=== PATIENT | male | born 1990 | race African-American/Black ===

== ENCOUNTER 2017-04-02 02:23 | Emergency (ER) | payer OTHER, SELFPAY ==
[2017-04-02] MEDS ORDERED: Adacel (T-DAP) 0.5 ML VIAL ONE (03:02)
[2017-04-02] MEDS ORDERED: Bacitracin Zinc 1 Packet ONE (03:14)
== END 2017-04-02 03:21 | disposition home or self-care (01) ==
LOC: BURERS 02:23
DX: S06.0X0A Concussion without loss of consciousness, initial encounter (principal); S01.112A Laceration without foreign body of left eyelid and periocular area, initial encounter; F17.210 Nicotine dependence, cigarettes, uncomplicated; W10.9XXA Fall (on) (from) unspecified stairs and steps, initial encounter
CPT/HCPCS: 12013; 90471; 90715